=== PATIENT | female | born 1965 | race American Indian/Alaskan Native ===

== ENCOUNTER → 2024-07-11 | Outpatient (CLI) | payer MEDICAID, SELFPAY ==
--- NOTE | 2024-07-11 09:55 | XR_ITS ---
Exam: MRI knee without contrast, right complete Date and time of exam: July 11, 2024 1035 hours Comparison May 10, 2007 INDICATIONS: Lateral anterior right knee pain joint locking clicking swelling stiffness 5 months post fall with injury to the knee Technique: Multiple axial, coronal, and sagittal sections on the knee have been obtained. T2-Weighted sagittal, fat-suppressed images, TR 3,500, TE 62, T2 weighted coronal fat-saturated images, TR 3,500, TE 62 Proton density sagittal sections, TR 1800, TE 31. T-1 weighted coronal images, TR 524, TE 13.0 Findings: Medial meniscus anterior horn intact. Medial meniscus, body large horizontal tear.. Posterior horn medial meniscus complex tears including horizontal linear tear and vertical tear outer one half posterior horn communicating inferior articular surface. Lateral meniscus anterior horn is intact Lateral meniscus, body is intact Posterior horn lateral meniscus is intact Anterior cruciate ligament moderate sprain. Posterior cruciate ligament appears intact. Knee effusion is small. Quadriceps and patellar tendons appear intact. There is no evidence of tendinosis. Inflammatory change or fracture of Hoffa's fat pad is not seen. Medial patellar facet demonstrates severe thinning. Lateral patellar facet cartilage demonstrates severe thinning. Trochlear cartilage demonstrates severe thinning. Marrow signal increased posterior medial femoral condylar surface, 9 mm, sagittal image 8. Medial collateral ligament appears intact. No meniscocapsular separation is seen. Illiotibial band and fibular collateral ligament are intact. Biceps femoris tendons appear intact. Medial femoral condylar articular cartilage demonstrates moderate thinning. Lateral femoral condylar articular cartilage demonstratesmoderate thinning. Tibial plateau cartilage demonstrates moderate thinning. Impression: Tears of the body and posterior horn medial meniscus Moderate sprain anterior cruciate ligament Small focal area of osteonecrosis medial femoral condyle
== END | disposition home or self-care (01) ==
LOC: SMRI 07-17 10:11
PROVIDERS: PCP Physician Assistant; Referring Provider Physician Assistant; Visit Provider Physician Assistant
DX: S83.241A Other tear of medial meniscus, current injury, right knee, initial encounter (principal); S83.511A Sprain of anterior cruciate ligament of right knee, initial encounter; W19.XXXA Unspecified fall, initial encounter; M87.851 Other osteonecrosis, right femur
CPT/HCPCS: 73721